=== PATIENT | female | born 1945 | race Two or more races ===

== ENCOUNTER → 2016-06-12 | Outpatient (CLI) | payer MEDICARE ==
[2016-06-12 17:58] LABS: BUN 21 mg/dL (7-18)
[2016-06-12 18:15] LABS: GFR (ESTIMATED) 34 ML/MIN (59-)
== END ==
LOC: MAY-LAB 16:47
PROVIDERS: Internal Medicine Cardiovascular Disease
DX: E03.9 Hypothyroidism, unspecified (principal); N18.3 Chronic kidney disease, stage 3 (moderate)